=== PATIENT | female | born 1980 | race Caucasian/White ===

== ENCOUNTER 2017-04-26 15:25 | Emergency (ER) | payer OTHER ==
--- NOTE | 2017-04-26 15:48 | PDOC ---
History of Present Illness - General History Source: Patient Exam Limitations: No Limitations - History of Present Illness Initial Comments: 04/26/17 16:04 The patient is a 36 year old female, with no significant past medical history, who presents to the emergency department complaining of dizziness, nausea, and vomiting since earlier today. The patient reports she woke up and felt as if the room were spinning. She reports needing to hold on to objects to keep balanced. Patient reports her dizziness is exacerbated when turning her head. She reports associated nausea and vomiting. Patient describes her 5-6 emetic episodes as yellow in color. Patient states she has been unable to tolerate solids or fluids. She reports she hears a swishing noise in her right ear. She denies any ear pain, fever, chills, or headache. She denies any diarrhea or constipation. She denies any recent travel or sick contacts. Allergies: NKDA Past Surgical History: None reported Social History: Social ETOH use. Current everyday smoker. No drug use PCP: Dr. Tuttle <Kiera Montejo - Last Filed: 04/26/17 16:04> <Denia Harris - Last Filed: 04/26/17 19:16> - General Chief Complaint: Nausea/Vomiting Stated Complaint: VERTIGO WITH VOMTING Time Seen by Provider: 04/26/17 15:35 Past History <Kiera Montejo - Last Filed: 04/26/17 16:04> - Psycho/Social/Smoking Cessation Hx Anxiety: No Suicidal Ideation: No Smoking History: Current every day smoker Number of Cigarettes Smoked Daily: 5 Information on smoking cessation initiated: Yes 'Breaking Loose' booklet given: 04/26/17 Hx Alcohol Use: Yes (SOCIAL) Drug/Substance Use Hx: No Substance Use Type: None <Denia Harris - Last Filed: 04/26/17 19:16> - Past Medical History Allergies/Adverse Reactions: Allergies Allergy/AdvReac Type Severity Reaction Status Date / Time No Known Allergies Allergy Verified 04/26/17 15:37 Home Medications: Ambulatory Orders Amox-Tr/K Cl [Augmentin - 875Mg Tablet] 1 tab PO BID #14 tablet 04/26/17 Meclizine HCl [Antivert -] 25 mg PO QID #28 tablet 04/26/17 Norgestimate-Ethinyl Estradiol [Ortho Tri-Cyclen Lo Tablet] 1 each PO DAILY Ondansetron [Zofran -] 4 mg PO TID PRN #21 tablet 04/26/17 Review of Systems - Review of Systems Able to Perform ROS?: Yes Comments:: 04/26/17 16:05 GENERAL/CONSTITUTIONAL: No fever or chills. No weakness. HEAD, EYES, EARS, NOSE AND THROAT: No change in vision. No ear pain or discharge. No sore throat. CARDIOVASCULAR: No chest pain or shortness of breath. RESPIRATORY: No cough, wheezing, or hemoptysis. GASTROINTESTINAL: Yes: +nausea, +vomiting. No diarrhea or constipation. GENITOURINARY: No dysuria, frequency, or change in urination. MUSCULOSKELETAL: No joint or muscle swelling or pain. No neck or back pain. SKIN: No rash NEUROLOGIC: Yes: +vertigo. No headache, loss of consciousness, or change in strength/sensation. ENDOCRINE: Yes: +unable to tolerate solids or fluids. No abnormal weight change. HEMATOLOGIC/LYMPHATIC: No anemia, easy bleeding, or history of blood clots. ALLERGIC/IMMUNOLOGIC: No hives or skin allergy. <Kiera Montejo - Last Filed: 04/26/17 16:04> *Physical Exam - Vital Signs Last Vital Signs Temp Pulse Resp BP Pulse Ox 97.7 F 73 15 155/82 99 04/26/17 15:32 04/26/17 15:32 04/26/17 15:32 04/26/17 15:32 04/26/17 15:32 <Kiera Montejo - Last Filed: 04/26/17 16:04> - Vital Signs Last Vital Signs Temp Pulse Resp BP Pulse Ox 97.7 F 73 15 155/82 99 04/26/17 15:32 04/26/17 15:32 04/26/17 15:32 04/26/17 15:32 04/26/17 15:32 - Physical Exam Comments: GENERAL: Awake, alert, and fully oriented, in no acute distress HEAD: No signs of trauma EYES: PERRLA, EOMI, sclera anicteric, conjunctiva clear. +Horizontal nystagmus precipitated by any position changes of the head. ENT: Auricles normal inspection, hearing grossly normal. R TM with purulent effusion. L TM normal in appearance. Nares patent, oropharynx clear without exudates. Moist mucosa NECK: Normal ROM, supple, no lymphadenopathy, JVD, or masses LUNGS: Breath sounds equal, clear to auscultation bilaterally. No wheezes, and no crackles HEART: Regular rate and rhythm, normal S1 and S2, no murmurs, rubs or gallops ABDOMEN: Soft, nontender, normoactive bowel sounds. No guarding, no rebound. No masses EXTREMITIES: Normal range of motion, no edema. No clubbing or cyanosis. No cords , erythema, or tenderness NEUROLOGICAL: Cranial nerves II through XII grossly intact. Normal speech. Motor and sensation intact. Gait not tested due to nature of complaint. SKIN: Warm, Dry, normal turgor, no rashes or lesions noted. <Denia Harris - Last Filed: 04/26/17 19:16> Heart Score/ECG Review - ECG Impressions Comment:: EKG read 17:30- Sinus catrachita 53 bpm, no acute ST/T changes <Denia Harris - Last Filed: 04/26/17 19:16> ED Treatment Course - LABORATORY CBC & Chemistry Diagram: 04/26/17 16:25 04/26/17 16:25 <Denia Harris - Last Filed: 04/26/17 19:16> Medical Decision Making - Medical Decision Making 04/26/17 18:10 Pt reports some improvement with IVF, zofran, and first dose of meclizine. Will cont to monitor, may require second dose of meclizine. <Denia Harris - Last Filed: 04/26/17 19:16> *DC/Admit/Observation/Transfer - Attestations Scribe Attestion: 04/26/17 16:05 Documentation prepared by Kiera Montejo, acting as medical staffing coordinator for Denia Harris MD. <Kiera Montejo - Last Filed: 04/26/17 16:04> - Discharge Dispostion Admit: No <Denia Harris - Last Filed: 04/26/17 19:16> Diagnosis at time of Disposition: Vertigo Otitis media Qualifiers: Otitis media type: suppurative Chronicity: acute Laterality: right Recurrence: not specified as recurrent Spontaneous tympanic membrane rupture: without spontaneous rupture Qualified Code(s): H66.001 - Acute suppurative otitis media without spontaneous rupture of ear drum, right ear - Discharge Dispostion Disposition: HOME Condition at time of disposition: Stable - Prescriptions Prescriptions: Meclizine HCl [Antivert -] 25 mg PO QID #28 tablet Amox-Tr/K Cl [Augmentin - 875Mg Tablet] 1 tab PO BID #14 tablet Ondansetron [Zofran -] 4 mg PO TID PRN #21 tablet PRN Reason: Nausea And/Or Vomiting - Referrals Referrals: Alexia Tuttle [Primary Care Provider] - - Patient Instructions Printed Discharge Instructions: Middle Ear Infection, DI for Vertigo
[2017-04-26 15:50] VITALS: BP 155/82; PULSE 73; TEMP 97.7; BMI 29.2
[2017-04-26] MEDS ORDERED: ONDANSETRON 4 MG/2 ML VIAL IVPUSH ONE (15:55)
[2017-04-26] MEDS ORDERED: SODIUM CHLORIDE 1,000 ML IV STA (15:55)
[2017-04-26] MEDS ORDERED: FAMOTIDINE 20 MG/50 ML IVPB 50 ML IVPB ONE ×2 (15:55→16:14)
[2017-04-26] MEDS ORDERED: ONDANSETRON 4 MG/2 ML VIAL ONE (16:14)
[2017-04-26 17:06] LABS: EOSINOPHIL 0.1 % (0-4.5); MCH 29.7 pg (25.7-33.7); MCHC 34.2 g/dl (32.0-36.0); MEAN CELL VOLUME 86.8 fl (80-96); MEAN PLT VOLUME 9.4 fl (7.5-11.1); NEUTROPHILS 85.1 % (42.8-82.8); PLATELET COUNT 243 K/MM3 (134-434); RDW 12.7 % (11.6-15.6); WHITE BLOOD COUNT 9.6 K/mm3 (4.0-10.8)
[2017-04-26] MEDS ORDERED: MECLIZINE HCL 25 MG TABLET (FP) PO ONE ×2 (17:30→18:34)
[2017-04-26 17:35] LABS: ALK PHOS 45 U/L (32-92); ANION GAP 9 (8-16); CALCIUM 9.6 mg/dl (8.4-10.2); CO2 24 mmol/L (22-28); CREATININE 0.7 mg/dl (0.6-1.3); GLUCOSE,RANDOM 93 mg/dl (74-106); SGOT/AST 18 U/L (10-42); SGPT/ALT 16 U/L (10-40)
[2017-04-26] MEDS ORDERED: MECLIZINE HCL 25 MG TABLET (FP) ONE ×2 (17:40→18:48)
--- NOTE | 2017-04-26 19:51 | PDOC ---
*Physical Exam - Vital Signs Last Vital Signs Temp Pulse Resp BP Pulse Ox 97.7 F 73 15 155/82 99 04/26/17 15:32 04/26/17 15:32 04/26/17 15:32 04/26/17 15:32 04/26/17 15:32 ED Treatment Course - LABORATORY CBC & Chemistry Diagram: 04/26/17 16:25 04/26/17 16:25 - ADDITIONAL ORDERS Additional order review: Laboratory Results 04/26/17 04/26/17 16:25 16:25 Sodium 136 Potassium 4.1 Chloride 103 Carbon Dioxide 24 Anion Gap 9 BUN 12 Creatinine 0.7 Creat Clearance w eGFR > 60 Random Glucose 93 Calcium 9.6 Total Bilirubin 1.0 AST 18 ALT 16 Alkaline Phosphatase 45 Total Protein 7.0 Albumin 4.0 Lipase 21 L Serum , Qual Negative 04/26/17 16:25 RBC 4.68 MCV 86.8 MCHC 34.2 RDW 12.7 MPV 9.4 Neutrophils % 85.1 H Lymphocytes % 12.0 Monocytes % 1.8 L Eosinophils % 0.1 Basophils % 1.0 - Medications Given in the ED: ED Medications Discontinued Medications Generic Name Dose Route Start Last Admin Trade Name Freq PRN Reason Stop Dose Admin Famotidine/Sodium Chloride 50 mls @ 100 mls/hr 04/26/17 15:55 04/26/17 16:30 Pepcid 20 Mg Premixed Ivpb - IVPB 04/26/17 16:24 100 mls/hr ONCE ONE Administration Sodium Chloride 1,000 mls @ 1,000 mls/hr 04/26/17 15:55 04/26/17 16:25 Normal Saline - IV 04/26/17 16:54 1,000 mls/hr ASDIR STA Administration Meclizine HCl 25 mg 04/26/17 17:30 04/26/17 17:40 Antivert - PO 04/26/17 17:31 25 mg ONCE ONE Administration Meclizine HCl 25 mg 04/26/17 18:34 04/26/17 18:50 Antivert - PO 04/26/17 18:35 25 mg ONCE ONE Administration Ondansetron HCl 4 mg 04/26/17 15:55 04/26/17 16:25 Zofran Injection IVPUSH 04/26/17 15:56 4 mg ONCE ONE Administration Progress Note - Progress Note Progress Note: Care of this patient received from Dr. Harris. Vertigo/nausea gradually improved . Patient was able to ambulate to the bathroom by herself without significant ataxia. She was able to eat saltine crackers without nausea/vomiting. Patient will be discharged in the company of her family with prescriptions for antibiotic/meclizine/ondansetron as written and transmitted by Dr. Harris. *DC/Admit/Observation/Transfer Diagnosis at time of Disposition: Vertigo Otitis media Qualifiers: Otitis media type: suppurative Chronicity: acute Laterality: right Recurrence: not specified as recurrent Spontaneous tympanic membrane rupture: without spontaneous rupture Qualified Code(s): H66.001 - Acute suppurative otitis media without spontaneous rupture of ear drum, right ear - Discharge Dispostion Disposition: HOME Condition at time of disposition: Stable - Prescriptions Prescriptions: Meclizine HCl [Antivert -] 25 mg PO QID #28 tablet Amox-Tr/K Cl [Augmentin - 875Mg Tablet] 1 tab PO BID #14 tablet Ondansetron [Zofran -] 4 mg PO TID PRN #21 tablet PRN Reason: Nausea And/Or Vomiting - Referrals Referrals: Alexia Tuttle [Primary Care Provider] - - Patient Instructions Printed Discharge Instructions: Tips to Help You Stop Smoking, Middle Ear Infection, DI for Vertigo Additional Instructions: Return to ER if you have recurrent severe symptoms Follow-up with your general doctor within the next 3-4 days - Post Discharge Activity Work/School Note: Back to Work
--- NOTE | 2017-04-27 14:45 | EKG ---
Test Reason : Blood Pressure : / mmHG Vent. Rate : 053 BPM Atrial Rate : 053 BPM P-R Int : 128 ms QRS Dur : 076 ms QT Int : 468 ms P-R-T Axes : 006 065 020 degrees QTc Int : 439 ms SINUS BRADYCARDIA WITH SINUS ARRHYTHMIA OTHERWISE NORMAL ECG NO PREVIOUS ECGS AVAILABLE Confirmed by BALJIT WEST MD ([id number]) on 04/27/2017 2:45:08 PM Referred By: MD HAQUE Confirmed By:BALJIT WEST MD
== END 2017-04-26 21:00 | disposition home or self-care (01) ==
LOC: FER 15:25
PROC: 3E033GC Introduction of Other Therapeutic Substance into Peripheral Vein, Percutaneous Approach (ICD-10-PCS; principal; 2017-04-26)
PROC: 3E0337Z Introduction of Electrolytic and Water Balance Substance into Peripheral Vein, Percutaneous Approach (ICD-10-PCS; 2017-04-26)
DX: H66.001 Acute suppurative otitis media without spontaneous rupture of ear drum, right ear (principal); R42 Dizziness and giddiness; F17.210 Nicotine dependence, cigarettes, uncomplicated
CPT/HCPCS: 36415; 80053; 83690; 84703; 85025; 93005; 99284-25